=== PATIENT | female | born 1950 | race Caucasian/White ===

== ENCOUNTER 2024-03-22 14:02 | Oncology outpatient (recurring) (ONCR) | payer MEDICARE, SELFPAY ==
--- OUTSIDE RECORDS SUMMARY | 2024-03-22 14:06 | XMS_ITS | Continuity of Care Document ---
Author Name Unknown Organization [facility] Address [address] [place] [address]- Encounter [employer] Number [id number] Date(s): 12/09/23 - 12/09/23 [facility] [address] [place] [address]- Encounter Diagnosis Encounter for screening colonoscopy(Discharge Diagnosis) - 12/09/23 Discharge Disposition: .Discharge to Home (Routine) Attending Physician: Brandon Sharma MD Admitting Physician: Brandon Sharma MD Allergies, Adverse Reactions, Alerts Substance Reaction Severity Status codeine nauseau, hallucinations Unknown Acti ve Macrobid severe headache Unknown Active Medications aspirin 81 mg oral capsule 81 mg = 1 cap, By mouth, Q24H, Refill(s) 0 Start Date: 12/09/23 Status: Ordered metoprolol succinate By mouth, Daily, Refill(s) 0 Start Date: 12/09/23 Status: Ordered pravastatin 20 mg oral tablet 20 mg = 1 tab, By mouth, Daily, Refill(s) 0 Start Date: 12/09/23 Status: Ordered Procedures Procedure Date Related Diagnosis Body Site Status Colonoscopy - Endo 63277 1 12/09/23 Completed COLONOSCOPY FLX DX W/COLLJ S PEC WHEN PFRMD 12/09/23 Completed COLONOSCOPY FLX DX W/COLLJ S PEC WHEN PFRMD 12/09/23 Completed 1auto-populated from documented surgical case Vital Signs Most recent to oldest [Reference Range]: 1 2 Blood Pressure 137/82 (12/09/23 1:20 PM) Blood Pressure 133/82mmHg (12/09/23 1:05 PM) 138/83mmHg (12/09/23 12:50 PM) Height (inches) (Clinical) 64 in (12/09/23 9:36 AM) Weight (kg) (Clinical) 68.1 kg (12/09/23 9:36 AM) Social History Social History Type Response Sex Female Hospital Discharge Instructions Patient Education 12/09/2023 09:45:08 Moderate Conscious Sedation, Adult, Care After Moderate Conscious Sedation, Adult, Care After This sheet gives you information about how to care for yourself after your procedure. Your health care provider may also give you more specific instructions. If you have problems or questions, contact your health care provider. What can I expect after the procedure? After the procedure, it is common to have: ??? Sleepiness for several hours. ??? Impaired judgment for several hours. ??? Difficulty with balance. ??? Vomiting if you eat too soon. Follow these instructions at home: For the time period you were told by your health care provider: ??? Rest. ??? Do not participate in activities where you could fall or become injured. ??? Do not drive or use machinery. ??? Do not drink alcohol. ??? Do not take sleeping pills or medicines that cause drowsiness. ??? Do not make important decisions or sign legal documents. ??? Do not take care of children on your own. Eating and drinking ??? Follow the diet recommended by your health care provider. ??? Drink enough fluid to keep your urine pale yellow. ??? If you vomit: ??? Drink water, juice, or soup when you can drink without vomiting. ??? Make sure you have little or no nausea before eating solid foods. General instructions ??? Take xopk-lus-qvsulez and prescription medicines only as told by your health care provider. ??? Have a responsible adult stay with you for the time you are told. It is important to have someone help care for you until you are awake and alert. ??? Do not smoke. ??? Keep all follow-up visits as told by your health care provider. This is important. Contact a health care provider if: ??? You are still sleepy or having trouble with balance after 24 hours. ??? You feel light-headed. ??? You keep feeling nauseous or you keep vomiting. ??? You develop a rash. ??? You have a fever. ??? You have redness or swelling around the IV site. Get help right away if: ??? You have trouble breathing. ??? You have new-onset confusion at home. Summary ??? After the procedure, it is common to feel sleepy, have impaired judgment, or feel nauseous if you eat too soon. ??? Rest after you get home. Know the things you should not do after the procedure. ??? Follow the diet recommended by your health care provider and drink enough fluid to keep your urine pale yellow. ??? Get help right away if you have trouble breathing or new-onset confusion at home. This information is not intended to replace advice given to you by your health care provider. Make sure you discuss any questions you have with your health care provider. Document Revised: 11/23/2020 Document Reviewed: 06/21/2020 [employer] Patient Education ?? 2021 [employer]. 12/09/2023 09:45:08 Colonoscopy, Adult, Care After, Yrgs-gc-[id number] Colonoscopy, Adult, Care After After a colonoscopy, it is common to have: ??? A small amount of blood in your poop (stool) for 24 hours. ??? Some gas. ??? Mild cramping or bloating in your belly (abdomen). Follow these instructions at home: Your doctor may give you more instructions. If you have problems, contact your doctor. Eating and drinking ??? Drink enough fluid to keep your pee (urine) pale yellow. ??? Follow instructions from your doctor about what you cannot eat or drink. ??? Return to your normal diet as told by your doctor. Avoid heavy or fried foods that are hard to digest. Activity ??? Rest as told by your doctor. ??? Get up to take short walks every 1 to 2 hours. Ask for help if you feel weak or unsteady. ??? Return to your normal activities when your doctor says that it is safe. To help cramping and bloating: ??? Try walking around. ??? If told, put heat on your belly. Do this as told by your doctor. Use the heat source that your doctor recommends, such as a moist heat pack or a heating pad. ??? Place a towel between your skin and the heat source. ??? Leave the heat on for 20???30 minutes. ??? Take off the heat if your skin turns bright red. This is very important. If you cannot feel pain, heat, or cold, you have a greater risk of getting burned. General instructions ??? If you were given a sedative during your procedure, do not drive or use machines until your doctor says that it is safe. A sedative is a medicine that helps you relax. ??? For the first 24 hours after the procedure: ??? Do not sign important documents. ??? Do not drink alcohol. ??? Do your daily activities more slowly than normal. ??? Eat foods that are soft and easy to digest. ??? Take mylm-vlt-cbmrtmi and prescription medicines only as told by your doctor. ??? Keep all follow-up visits. Contact a doctor if: ??? You have blood in your poop 2???3 days after the procedure. Get help right away if: ??? You have more than a small amount of blood in your poop. ??? You see large clumps of tissue (blood clots) in your poop. ??? Your belly is swollen. ??? You feel like you may vomit (nauseous). ??? You vomit. ??? You have a fever. ??? You have belly pain that gets worse, and medicine does not help your pain. These symptoms may be an emergency. Get help right away. Call 911. ??? Do not wait to see if the symptoms will go away. ??? Do not drive yourself to the hospital. Summary ??? After a colonoscopy, it is common to have a small amount of blood in your poop. You may also have mild cramping and bloating in your belly. ??? If you were given a sedative during your procedure, do not drive or use machines until your doctor says that it is safe. A sedative is a medicine that helps you relax. ??? Get help right away if you have a lot of blood in your poop, feel like you may vomit, have a fever, or have more belly pain. This information is not intended to replace advice given to you by your health care provider. Make sure you discuss any questions you have with your health care provider. Document Revised: 03/19/2022 Document Reviewed: 03/19/2022 [employer] Patient Education ?? 2021 [employer]
--- OUTSIDE RECORDS SUMMARY | 2024-03-22 14:06 | XMS_ITS ---
Author Name Unknown Organization [facility] [place] Address [address] [place] [address] Care Team Providers Care Associate Data Scientist Name Role Phone Nannette Ronquillo MD Primary Care Provider Unavaila ble Nannette Ronquillo Unavailable [phone] Allergies Allergen (clinical drug ingredient) Drug/Non Drug Allergy documented on EMR Reaction Allergy Type Onset Date Status nitrofurantoin, macrocrystals / nitrofurantoin, monohydrate Macrobid Unknown Drug Allergy 09/08/2022 active codeine Codeine Unknown Drug Allergy 09/08/2022 active REASON FOR VISIT 6 mth f/u Medications Medication SIG (Take, Route, Frequency, Duration) Notes Start Date End Date Status Pravastatin Sodium 20 MG one tablet Oral once a day 07/14/2023 Active Vitamin D (Ergocalciferol) 54187 UNIT Oral 08/17/2023 Active Metoprolol Succinate ER 25 MG 1 tablet Orally Once a day Active Social History Tobacco Use: Social History Observation Description Date Details (start date - stop date) Never Smoker NA - NA Household Question Answer Notes Marital status: Number of adults in household: 2 Number of children in household: 0 AUDIT-C Plus 2 Question Answer Notes 1. How often did you have a drink containing alc ohol? 4+ times a week (4) 2. How many drinks containin g alcohol did you have on a typical day when you were drinking? 1 or 2 drinks (0) 3. How often did you have 5 or more drinks on on e occasion? Never (0) 4. How often have you used marijuana? Never (0) 5. How often have you used a n illegal drug or a prescription medication for non-medical reasons*? Never (0) Total Score 4 AUDIT-C (0-12 Points) Positive Screen Cannabis question (0-4 Points) Negative Screen Other drugs question (0-4 Points) Negative Shabnam GUTIERRES V2.1 Question Answer Notes 1. Drink more than a few sip s of beer, wine, or any drink containing alcohol? Say 0 if none 365 2. Use any marijuana (cannab is, weed, oil, wax, or hash by smoking, vaping, dabbing, or in edibles) or synthetic marijuana: (like K2 , Spice )? Say 0 if none 0 3. Use anything else to get high (like other illegal drugs, pills, prescription or rvlp-dvp-dvuscmp medications, and things that you sniff, mcbride, vape, or inject)? Say 0 if none 0 Have you ever ridden in a [place] R driven by someone (including yourself) who was high or had been using alcohol or drugs? No Do you ever use alcohol or d rugs to RELAX, feel better about yourself, or fit in? No Do you ever use alcohol or drugs while you are b y yourself, or ALONE? No Do you ever FORGET things you did while using al cohol or drugs? No Do your FAMILY or FRIENDS ev er tell you that you should cut down on your drinking or drug use? No Have you ever gotten into TROUBLE while you were using alcohol or drugs? No AUDIT (2018 Edition) Question Answer Notes How often do you have a drink containing alcohol ? 4 or more times a week How many drinks containing a lcohol do you have on a typical day when you are drinking? 1 or 2 How often do you have 5 or more drinks on one oc casion? Never How often during the last ye ar have you found that you were not able to stop drinking once you had started? Never How often during the last ye ar have you failed to do what was normally expected from you because of drinking? Never How often during the last ye ar have you needed a first drink in the morning to get yourself going after a heavy drinking session? Never How often during the last ye ar have you had feeling of guilt or remorse after drinking? Never How often during the last ye ar have you been unable to remember what happened the night before because you had been drinking? Never Have you or someone else bee n injured as a result of your drinking? No Has a relative, friend, doct or or another health worker been concerned about your drinking or suggested you cut down? No CAGE-AID Questionnaire (2018 Edition) Question Answer Notes Have you ever felt that you ought to cut down on your drinking or drug use? No Have people annoyed you by criticizing your drin reyna or drug use? No Have you ever felt bad or guilty about your drin reyna or drug use? No Have you ever had a drink or used drugs first thing in the morning to steady your nerves or to get rid of a hangover? No PRAPARE Question Answer Notes Date Completed/Updated: 01/26/2024 What is your current housing situation? I have h ousing Are you worried about losing your housing? No What is your current work situation? Oth erwise unemployed but not seeking work (ex. 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 Check all that apply I do not have problems meeting my needs Has lack of transportation k ept you from medical appointments, meetings, work or from getting things needed for daily living? No How often do you see or talk to people that you care about and feel close to? (For example: talking to friends on the phone, visiting friends or family, going to sikhism or club meetings) 3 to 5 times a week How stressed are you? Stress is when someone feels tense, nervous, anxious, or can't sleep at night because their mind is troubled A little bit In the past year have you sp ent more than 2 nights in a row in a skilled nursing, assisted, alf center, or juvenile correctional facility? No Do you feel physically and e motionally safe where you currently live? Yes In the past year, have you b een afraid of your partner or ex-partner? No Are you a refugee? No What country are you from? [place] Tobacco Control (Standard) Question Answer Notes Tobacco use: Nonsmoker Additional Findings: Tobacco non-user Current no nsmoker AUDIT-C (Standard) Question Answer Notes Did you have a drink contain ing alcohol in the past year? Yes How often did you have six o r more drinks on one occasion in the past year? Never (0 point) How many drinks did you have on a typical day when you were drinking in the past year? 1 or 2 drinks (0 point) How often did you have a dri nk containing alcohol in the past year? Daily or almost daily (4 points) Points 4 Interpretation Positive Vital Signs Temperature 98.4 degrees Fahrenheit 01/26/20 24 Blood pressure systolic 116 mm Hg 01/26/20 24 Blood pressure diastolic 68 mm Hg 024 Heart Rate 70 /min 01/26/2024 Respiratory Rate 17 /min 01/26/2024 Height 64 in 01/26/2024 Weight 153 lbs 01/26/2024 BMI 26.26 kg/m2 01/26/2024 Oximetry 97 % 01/26/2024 Height-cm 162.56 cm 01/26/2024 Weight-kg 69.4 kg 01/26/2024 Encounters Encounter Location Date Provider Diagnosis [facility] Marcel[facility] [address] [place] [id number] 01/26/2024 Nannette Ronquillo Mixed hyperlipidemia E78.2 ; Unspecified osteoarthritis, unspecified site M19.90 ; Vitamin D deficiency, unspecified E55.9 ; Edema, unspecified R60.9 and Metatarsalgia, left foot M77.42 Assessments Encounter Date Diagnosis (ICD Code) Assessment Notes Treat ment Notes Treatment Clinical Notes 01/26/2024 Mixed hyperlipidemia (ICD-10 - E78.2) 01/26/2024 Unspecified osteoarthritis, unspecified site (ICD-10 - M19.90) 01/26/2024 Vitamin D deficiency , unspecified (ICD-10 - E55.9) 01/26/2024 Edema, unspecified (ICD-10 - R60.9) 01/26/2024 Metatarsalgia, left foot (ICD-10 - M77.42) 01/26/2024 Other discussed cont with compression socks could add mild diuretic if worsens discussed metarsal pad discussed potential pod referral discussed acupuncture f/u with lab in 6 months, sooner prn Plan Of Treatment Treatment Notes Assessment Notes Other discussed cont with compression socks could add mild diuretic if worsens discussed metarsal pad discussed potential pod referral discussed acupuncture f/u with lab in 6 months, sooner prn Next Appt Details Follow Up: 6 Months, Reason: Provider Name:Nannette Ronquillo, 07/28/2024 08:30:00 AM, [address], [address], [place], [address], Progress Notes * RAMÍREZ CENTENODOB: [birth year] (73 yo F)Acc No.[id number]:01/26/2024 Patient:?RAMÍREZ CENTENO Provider:?Nannette Ronquillo MD :1950???Age:73 Y???Sex:Female D ate:01/26/2024 Address:[facility] [address], [place], [id number] Pcp:Nannette Ronquillo MD Check In:08:19 AM CSTCheck O ut:09:15 AM MANAGER SOCIAL WORK Subjective: * Chief Complaints: * ???6 mth f/u * HPI: ???Today's Visit:?Pt presents with husban at side. Well groomed and able to care for self. Able to walk with steady gait. A/Ox3. States here today for a six month check in. Concerns are toe on L foot has strange nerve sensation that is painful at times, BLE swell and ache throughout the day and are painful at night. Wairs compression socks daily. AOC on L side of nose that she stated she is seeing Hailey Gómez [facility] [employer] [employer] [facility] for. Was frozen 4 weeks ago but keeps coming back.? Iván Hinds Lpn Pt presents for 6 month f/u.? Overall doing well.? Has noted some LE edema bilaterally that improves with elevation.? Does wear compression stockings.? Additional has some pain b/t 1st and 2nd toes.? Stinging type nerve pain.? Comes and goes.? No other concerns today. * ROS:?General / Constitutional:?Patient denies?change in appetite, fever, weakness.?Allergy / Immunology:?Patient denies?hives, itching, rash.?Ophthalmologic:?Patient denies?blurry vision, discharge, red eye(s).?ENT:?Patient denies?difficulty in swallowing, hoarseness.?Endocrine:?Patient denies?cold intolerance, hair loss.?Respiratory:?Patient denies?chronic cough, shortness of breath, sputum production.?Breast:?Patient denies?bloody nipple discharge, breast pain, breast swelling.?Cardiovascular:?Patient denies?chest pain, chest pain with exertion, irregular heartbeat.?Gastrointestinal:?Patient denies?abdominal pain, diarrhea, rectal bleeding.?Hematology:?Patient denies?easy bleeding, easy bruising, recent transfusion.?Gynecology:?Patient denies?abnormal bleeding, hot flashes, pelvic pain.?Genitourinary:?Patient denies?abdominal pain / swelling, blood in the urine, frequent urination.?Musculoskeletal:?Patient denies?arthritis / arthralgia, joint stiffness, swollen joints.?Peripheral Vascular:?Patient denies?blanching of skin, cold extremities, decreased sensation in extremities.?Podiatric:?Patient complains of?nerve pain in toes on L foot, , foot swelling, ankle swelling.?Skin:?Patient denies?blistering of skin, changing moles, skin lesion(s).?Comments?aoc to L side of nose that had been frozen once but always comes back.?Neurologic:?Patient denies?dizziness, gait abnormality, headache.?Psychiatric:?Patient denies?delusions, depressed mood, difficulty sleeping.? * Medical History:? * Surgical History:? * Hospitalization/Major Diagno stic Procedure:? * Family History:?Father: dece ased.?Mother: .?2 daughter(s) . .? * Social History:?Tobacco Use:?Tobacco Control (Standard)?Tobacco use:?Nonsmoker ?Additional Findings: Tobacco non-user?Current nonsmoker ???Migrated Social History:?Migrated Social History: Smoking Status : non-smoker. ???Drug/Alcohol:?Drugs?Have you used drugs other than those for medical reasons in the past 12 months??No ?Caffeine?Intake:?1-2 cups per day ?Do you smoke marijuana?: Denies. ?Do you drink alcohol?: Daily. ?AUDIT-C Plus 2?1. How often did you have a drink containing alcohol??4+ times a week (4) ?2. How many drinks containing alcohol did you have on a typical day when you were drinking??1 or 2 drinks (0) ?3. How often did you have 5 or more drinks on one occasion??Never (0) ?4. How often have you used marijuana??Never (0) ?5. How often have you used an illegal drug or a prescription medication for non-medical reasons*??Never (0) ?Total Score?4 ?AUDIT-C (0-12 Points)?Positive Screen ?Cannabis question (0-4 Points)?Negative Screen ?Other drugs question (0-4 Points)?Negative Screen ?AUDIT (2018 Edition)?How often do you have a drink containing alcohol??4 or more times a week ?How many drinks containing alcohol do you have on a typical day when you are drinking??1 or 2 ?How often do you have 5 or more drinks on one occasion??Never ?How often during the last year have you found that you were not able to stop drinking once you had started??Never ?How often during the last year have you failed to do what was normally expected from you because of drinking??Never ?How often during the last year have you needed a first drink in the morning to get yourself going after a heavy drinking session??Never ?How often during the last year have you had feeling of guilt or remorse after drinking??Never ?How often during the last year have you been unable to remember what happened the night before because you had been drinking??Never ?Have you or someone else been injured as a result of your drinking??No ?Has a relative, friend, doctor or another health worker been concerned about your drinking or suggested you cut down??No ?CAGE-AID Questionnaire (2018 Edition)?Have you ever felt that you ought to cut down on your drinking or drug use??No ?Have people annoyed you by criticizing your drinking or drug use??No ?Have you ever felt bad or guilty about your drinking or drug use??No ?Have you ever had a drink or used drugs first thing in the morning to steady your nerves or to get rid of a hangover??No ?AUDIT-C (Standard)?Did you have a drink containing alcohol in the past year??Yes ?How often did you have six or more drinks on one occasion in the past year??Never (0 point) ?How many drinks did you have on a typical day when you were drinking in the past year??1 or 2 drinks (0 point) ?How often did you have a drink containing alcohol in the past year??Daily or almost daily (4 points) ?Points?4 ?Interpretation?Positive ???Household:?Household?Marital status:?Number of adults in household:?2 ?Number of children in household:?0 ???Miscellaneous:?Safety issues?Do you feel safe at home??Yes ?Are there any firearms in the house??Yes ?Education?Do you go to school??No ?Occupation: retired. ???Drug and Alcohol Risk Assessment:?LYDIAT V2.1?1. Drink more than a few sips of beer, wine, or any drink containing alcohol? Say 0 if none?365 ?2. Use any marijuana (cannabis, weed, oil, wax, or hash by smoking, vaping, dabbing, or in edibles) or synthetic marijuana: (like K2 , Spice )? Say 0 if none?0 ?3. Use anything else to get high (like other illegal drugs, pills, prescription or zgka-bgg-qrhgsmk medications, and things that you sniff, mcbride, vape, or inject)? Say 0 if none?0 ?Have you ever ridden in a CAR driven by someone (including yourself) who was high or had been using alcohol or drugs??No ?Do you ever use alcohol or drugs to RELAX, feel better about yourself, or fit in??No ?Do you ever use alcohol or drugs while you are by yourself, or ALONE??No ?Do you ever FORGET things you did while using alcohol or drugs??No ?Do your FAMILY or FRIENDS ever tell you that you should cut down on your drinking or drug use??No ?Have you ever gotten into TROUBLE while you were using alcohol or drugs??No ???Social Determinants:?PRAPARE?Date Completed/Updated:?01/26/2024 ?What is your current housing situation??I have housing ?Are you worried about losing your housing??No ?What is your current work situation??Otherwise unemployed but not seeking work (ex. 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 Check all that apply?I do not have problems meeting my needs ?Has lack of transportation kept you from medical appointments, meetings, work or from getting things needed for daily living??No ?How often do you see or talk to people that you care about and feel close to? (For example: talking to friends on the phone, visiting friends or family, going to sikhism or club meetings)?3 to 5 times a week ?How stressed are you? Stress is when someone feels tense, nervous, anxious, or can't sleep at night because their mind is troubled?A little bit ?In the past year have you spent more than 2 nights in a row in a skilled nursing, assisted, alf center, or juvenile correctional facility??No ?Do you feel physically and emotionally safe where you currently live??Yes ?In the past year, have you been afraid of your partner or ex- partner??No ?Are you a refugee??No ?What country are you from??[place] * Medications:?TakingMetoprolo l Succinate ER 25 MG Tablet Extended Release 24 Hour 1 tablet Orally Once a day Pravastatin Sodium 20 MG Tablet one tablet Oral once a day Vitamin D (Ergocalciferol) 86913 UNIT Capsule Oral Taking Metoprolol Succinate ER 25 MG Tablet Extended Release 24 Hour 1 tablet Orally Once a day Taking Pravastatin Sodium 20 MG Tablet one tablet Oral once a day Taking Vitamin D (Ergocalciferol) 75431 UNIT Capsule Oral DiscontinuedToprol XL 25 MG Tablet Extended Release 24 Hour Oral Vitamin D (Ergocalciferol) 1.25 MG (06278 UT) Capsule Oral Discontinued Toprol XL 25 MG Tablet Extended Release 24 Hour Oral Discontinued Vitamin D (Ergocalciferol) 1.25 MG (99778 UT) Capsule Oral * Allergies:?Macrobid: Allergy - Onset Date 09/08/2022odeine: Allergy - Onset Date 09/08/2022 Objective: * Vitals:?BP:116/68mm Hg, HR:7 0/min, RR:17/min, Temp:98.4F, Oxygen sat %:97%, Wt:153lbs, Wt-k.4 kg, Ht: 64 in, Ht-cm: 162.56 cm, BMI:26.26Index, Pain scale:01-10, Body Surface Area: 1.77, LMP:na. * Examination: ???General Examination: ???GEN: NAD, pleasant HEENT normal Cor RRR without m Lungs CTA bilat Abd: soft NT/ND Ext no C/C mild edema, + pain b/w 1st and second toes.? worse with pressure.? No deformity psych: A&O x 3. Assessment: * Assessment: 1.?Mixed hyperlipidemia - E7 8.2 (Primary)?2.?Unspecified osteoarthritis, unspecified site - M19.90?3.?Vitamin D deficiency, unspecified - E55.9?4.?Edema, unspecified - R60.9?5.?Metatarsalgia, left foot - M77.42? Plan: * Treatment: * Procedure Codes:? * Follow Up:?6 Months * Billing Information: * Visit Code:? 70406 Office Visit, Est Pt., Level 3. * Procedure Codes:? * Sign off status: Completed true * Provider:?Nannette Ronquillo MD Date:?2023 Generated for Christal bustos/Mariano/Sudarshan on:?03/22/2024 02:06 PM CDT
--- OUTSIDE RECORDS SUMMARY | 2024-03-22 14:06 | XMS_ITS | Continuity of Care Document ---
Author Name Unknown Organization [facility] Address [address] [place], [place] [address] [address] Care Team Providers Care Media Center Assistant Name Role Phone MONROE HORNE Primary Care Physician [phone] Encounter MOPB_LUANN [id number] Date(s): 01/07/24 - 01/07/24 [facility] [address] [place], [place] [address] [address] Discharge Disposition: Home or Self Care Attending Physician: MONROE HORNE NP Referring Physician: MONROE HORNE NP Results Radiology Reports * Exam Date Time Procedure Performing Provider Status 01/07/24 11:00 AM BD Bone Density DEXA Axial Skeleton Iseal Berry Dog Warden; Auth (Verified) Notes: (BD Bone Density DEXA Axial Skeleton) Reason For Exam: M81.08 REPORT EXAM: DEXA SCAN HISTORY: Bone density screening TECHNIQUE: Hologic COMPARISON: None FINDINGS: DEXA scan is performed on the lumbar spine. Quality of the study is good. BMD 1.166 grams per square centimeter. T-score 1.1. Z-score 3.5. DEXA scan is performed on the left femoral neck. Quality of the study is good. BMD 0.596 grams per square centimeter. T-score -2.3. Z-score -0.2. DEXA scan is performed on the left hip. Quality of the study is good. BMD 0.747 grams per square centimeter. T-score -1.6. Z-score 0.2. IMPRESSION: Location of lowest bone mineral density: Left femoral neck T-score: -2.3 T-score values considered osteopenia by WHO classification. Recommendation: Follow up DEXA scan in 1-2 years. FRAX WHO FRACTURE RISK ASSESSMENT TOOL: Not reported due to treatment for osteoporosis Final Signed by: GERARD FIGUEREDO MD Signed (Electronic Signature): 01/07/2024 12:13 pm CDT Social History Social History Type Response Sex Female Patient Care team information Care Team Personnel Name: MONROE HORNE GENERAL INTERN Position: Physician - Nurse Practi Anselmo Triplett All Member Role: Primary Care Physician Address: Address: [address] [place], [place] [id number]- Care Team Related Persons Name: GEMA DUMAS Address: Home
--- OUTSIDE RECORDS SUMMARY | 2024-03-22 14:07 | XMS_ITS ---
Author Name Unknown Organization [facility] Address [address] [place] [address] Care Team Providers Care Package Delivery Driver Name Role Phone Shima TAMEZ, Nannette Primary Care Provider Unavaila ble Nannette Ronquillo Unavailable [phone] Migration, Provider Unavailable Unavailable REASON FOR VISIT EMR-Nemesio Encounters Encounter Location Date Provider Diagnosis [facility] [address] [place] [address] 10/17/2023 Provider Migration Plan Of Treatment Next Appt Details Provider Name:Nannette Méndezy, 07/28/2024 08:30:00 AM, [address], [address], [place], [address], Progress Notes * RAMÍREZ CENTENODOB: [birth year] (73 yo F)Acc No.[id number]:10/17/2023 Patient:?RAMÍREZ CENTENO :1950???Age:73 Y???Sex:Female Address: [address], [place], [address] Subjective: * Chief Complaints: * ???EMR-Nemesio * Medical History:? * Surgical History:? * Hospitalization/Major Diagno stic Procedure:? * Medications:? Objective: * Vitals:? * Physical Examination:? Assessment: Plan: * Treatment: * Procedure Codes:? * * Date:?
--- OUTSIDE RECORDS SUMMARY | 2024-03-22 14:07 | XMS_ITS ---
Author Name Unknown Organization [facility] [place] Address [address] [facility] [address] [place] [address] Care Team Providers Care Conditioner Tender Name Role Phone Shima TAMEZ, Nannette Primary Care Provider Unavaila Nannette Loja Unavailable [phone] Migration, Provider Unavailable Unavailable Allergies Allergen (clinical drug ingredient) Drug/Non Drug Allergy documented on EMR Reaction Allergy Type Onset Date Status nitrofurantoin, macrocrystals / nitrofurantoin, monohydrate Macrobid Unknown Drug Allergy 09/08/2022 active codeine Codeine Unknown Drug Allergy 09/08/2022 active REASON FOR VISIT EMR-N[facility]io Medications Medication SIG (Take, Route, Frequency, Duration) Notes Start Date End Date Status Vitamin D (Ergocalciferol) 1.25 MG (65326 UT) Oral 08/17/2023 Active Vitamin D (Ergocalciferol) 06272 UNIT Oral 08/17/2023 Active Toprol XL 25 MG Oral 07/14/2023 Act bubba Pravastatin Sodium 20 MG Oral 07/14/2023 Active Encounters Encounter Location Date Provider Diagnosis [facility] [place] [address] [facility] [address] [place] [address] 10/18/2023 Provider Migration Plan Of Treatment Next Appt Details Provider Name:Nannette Ronquillo, 07/28/2024 08:30:00 AM, [address], [address], [place], [address], Progress Notes * RAMÍREZ CENTENODOB: 8 (73 yo F)Acc No.[id number]:10/18/2023 Patient:?JACOBO, RAMÍREZ :1950???Age:73 Y???Sex:Female Address:[address] [address], [place], [address] Subjective: * Chief Complaints: * ???EM[facility] * Medical History:? * Surgical History:? * Hospitalization/Major Diagno stic Procedure:? * Social History:?Migrated Social History:?Migrated Social History: Smoking Status :. * Medications:?TakingPravastat in Sodium 20 MG Tablet Oral Pravastatin Sodium 20 MG Tablet Oral Toprol XL 25 MG Tablet Extended Release 24 Hour Oral Toprol XL 25 MG Tablet Extended Release 24 Hour Oral Toprol XL 25 MG Tablet Extended Release 24 Hour Oral Vitamin D (Ergocalciferol) 1.25 MG (53694 UT) Capsule Oral Vitamin D (Ergocalciferol) 05343 UNIT Capsule Oral Taking Pravastatin Sodium 20 MG Tablet Oral Taking Pravastatin Sodium 20 MG Tablet Oral Taking Toprol XL 25 MG Tablet Extended Release 24 Hour Oral Taking Toprol XL 25 MG Tablet Extended Release 24 Hour Oral Taking Toprol XL 25 MG Tablet Extended Release 24 Hour Oral Taking Vitamin D (Ergocalciferol) 1.25 MG (42060 UT) Capsule Oral Taking Vitamin D (Ergocalciferol) 25775 UNIT Capsule Oral * Allergies:?Macrobid: Allergy - Onset Date 09/08/2022odeine: Allergy - Onset Date 09/08/2022 Objective: * Vitals:? * Physical Examination:? Assessment: Plan: * Treatment: * Procedure Codes:? * * Date:?
--- OUTSIDE RECORDS SUMMARY | 2024-03-22 14:07 | XMS_ITS | Patient Health Record ---
Author Name Unknown Organization [facility] Address [address] [facility] [address] [place] [address] Care Team Providers Care Evening Anchor Name Role Phone Nannette Ronquillo MD Primary Care Provider Unavaila Nannette Loja Unavailable [phone] Micaela Gómez Unavailable [phone] Migration, Provider Unavailable Unavailable Allergies Allergen (clinical drug ingredient) Drug/Non Drug Allergy documented on EMR Reaction Allergy Type Onset Date Status nitrofurantoin, macrocrystals / nitrofurantoin, monohydrate Macrobid Unknown Drug Allergy 09/08/2022 active codeine Codeine Unknown Drug Allergy 09/08/2022 active Results Component Value Reference Range Notes CALCIUM, SERUM/PLASMA Reviewed date:04/11/2023 12:00:00 AM Interpretation: Performing Lab: Notes/Report: Calcium 9.4 mg/dL 8.3 mg/dL - 10.5 mg/dL Reason For Referral No Information Medications Medication SIG (Take, Route, Frequency, Duration) Notes Start Date End Date Status Pravastatin Sodium 20 MG one tablet Oral once a day 07/14/2023 Active Vitamin D (Ergocalciferol) 24362 UNIT Oral 08/17/2023 Active Metoprolol Succinate ER [...] Screen Other drugs question (0-4 Points) Negative Scree n CRAFFT V2.1 Question Answer Notes 1. Drink more [...] (like other illegal drugs, pills, prescription or oqnp-aai-wyafoka medications, and things that you sniff, mcbride, [...] work (ex. 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 Stress is when someone feels tense, nervous, anxious, or can't sleep at night because their mind is troubled A little bit In the past year have you sp ent more than 2 nights in a row in a fpc, intermediate, senior care center, or juvenile correctional facility? No Do [...] daily (4 points) Points 4 Interpretation Positive Problems Problem Type SNOMED Code ICD Code Onset Dates Problem Status W/U Status Risk Notes Problem Vitamin D deficiency (95811597) Vitamin D deficiency, unspecified (E55.9) 07/14/20 Active confirmed Problem Mixed hyperlipidemia (088016560) Mixed hyperlipidemia (E78.2) 07/14/20 Active confirmed Problem Osteoarthritis (119806109) Unspecified osteoarthritis, unspecified site (M19.90) 07/14/20 Active confirmed Problem Age-related osteoporosis (341069412) Age-related osteoporosis without current pathological fracture (M81.0) 09/08/19 Active confirmed Vital Signs Heart Rate 70 /min 01/26/2024 Temperature 98.4 degrees Fahrenheit 01/26/2024 Respiratory Rate 17 /min 01/26/2024 Height-cm 162.56 cm 01/26/2024 Oximetry 97 % 01/26/2024 Blood pressure diastolic 68 mm Hg 01/26/2024 Weight-kg 69.4 kg 01/26/2024 Height 64 in 01/26/2024 Blood pressure systolic 116 mm Hg 01/26/2024 Weight 153 lbs 01/26/2024 BMI 26.26 kg/m2 01/26/2024 Encounters Encounter Location Date Provider Diagnosis [facility] [address] [place], [place] [address] 04/03/2023 Provider Migration [facility] [place] [address] [place], [place] [address] 04/10/2023 Provider Migration [facility] [address] [place], [place] [address] 06/01/2023 Nannette Ronquillo [facility] [address] [place] [address] 07/14/2023 Nannette Ronquillo [facility] [address] [place] [address] 01/26/2024 Nannette Ronquillo Mixed hyperlipidemia E78.2 ; Unspecified osteoarthritis, unspecified site M19.90 ; Vitamin D deficiency, unspecified E55.9 ; Edema, unspecified R60.9 and Metatarsalgia, left foot M77.42 [facility] [place] [address] [facility] [address] [place] [address] 10/17/2023 Provider Migration [facility] [place] [address] [facility] [address] [place] [address] 10/18/2023 Provider Migration Assessments Encounter Date Diagnosis (ICD Code) Assessment [...] 6 months, sooner prn Plan Of Treatment Next Appt Details Provider Name:Nannette Ronquillo, 07/28/2024 08:30:00 AM, [address], [address], [place], [address], Insurance Providers Payer Name Payer Address Payer Phone Subscriber Number Group Number Insured Name Patient Relationship to Insured Coverage Start Date Coverage End Date [place] [employer] [address], [place] [id number] JACOBO RAMÍREZ Self - patient is the insured 3 [facility] [address] [place] [address] [id number] PLAN N JACOBORAMÍREZ LORENZO Self - patient is the insured 3 3 Medical (General) History Medical History History ICD Code Vitamin D deficiency unspecified osteoarthritis mixed hyperlipidemia
[2024-03-22 15:15] VITALS: BP 128/80; PULSE 74; RESP 18; TEMP 36.8; O2SAT 99
[2024-03-22] MEDS: romosozumab-aqqg 210 mg/2.34 mL syr SUBCUT (15:50)
== END 2024-04-09 23:55 | disposition home or self-care (01) ==
PROVIDERS: Visit Provider Nurse Practitioner Family
DX: M81.0 Age-related osteoporosis without current pathological fracture (principal)
CPT/HCPCS: J3111

== ENCOUNTER 2024-04-19 13:29 | Oncology outpatient (recurring) (ONCR) | payer MEDICARE, SELFPAY ==
[2024-04-19] MEDS: romosozumab-aqqg 210 mg/2.34 mL syr SUBCUT (13:54)
[2024-04-19 14:00] VITALS: BP 150/82; PULSE 79; RESP 16; TEMP 36.6; O2SAT 97
== END 2024-05-09 23:59 | disposition home or self-care (01) ==
PROVIDERS: PCP Nurse Practitioner Family; Visit Provider Nurse Practitioner Family
DX: M81.0 Age-related osteoporosis without current pathological fracture (principal); Z79.899 Other long term (current) drug therapy
CPT/HCPCS: J3111

== ENCOUNTER 2024-05-23 13:22 | Oncology outpatient (recurring) (ONCR) | payer MEDICARE, SELFPAY ==
[2024-05-23] MEDS: romosozumab-aqqg 210 mg/2.34 mL syr SUBCUT (14:20)
[2024-05-23 14:30] VITALS: BP 146/83; PULSE 72; RESP 17; TEMP 36.6; O2SAT 98
== END 2024-06-09 23:59 | disposition home or self-care (01) ==
PROVIDERS: PCP Nurse Practitioner Family; Visit Provider Nurse Practitioner Family
DX: M81.0 Age-related osteoporosis without current pathological fracture (principal); Z79.899 Other long term (current) drug therapy
CPT/HCPCS: J3111

== ENCOUNTER 2024-06-27 13:52 | Oncology outpatient (recurring) (ONCR) | payer MEDICARE, SELFPAY ==
[2024-06-27 14:31] VITALS: BP 135/94; PULSE 79; RESP 18; TEMP 36.3; O2SAT 97
[2024-06-27] MEDS: romosozumab-aqqg 210 mg/2.34 mL syr SUBCUT (14:33)
== END 2024-07-09 23:59 | disposition home or self-care (01) ==
PROVIDERS: PCP Nurse Practitioner Family; Visit Provider Nurse Practitioner Family
DX: M81.0 Age-related osteoporosis without current pathological fracture (principal); Z79.899 Other long term (current) drug therapy
CPT/HCPCS: J3111

== ENCOUNTER 2024-07-25 13:38 | Oncology outpatient (recurring) (ONCR) | payer MEDICARE, SELFPAY ==
[2024-07-25] MEDS: romosozumab-aqqg 210 mg/2.34 mL syr SUBCUT (14:38)
== END 2024-08-09 23:59 | disposition home or self-care (01) ==
LOC: ONCMED 13:39
PROVIDERS: PCP Nurse Practitioner Family; Visit Provider Nurse Practitioner Family
DX: M81.0 Age-related osteoporosis without current pathological fracture (principal); Z79.899 Other long term (current) drug therapy
CPT/HCPCS: 96372; J3111

== ENCOUNTER 2025-01-17 10:17 | Oncology outpatient (recurring) (ONCR) | payer MEDICARE, SELFPAY ==
[2025-01-17 10:26] VITALS: BP 132/89; PULSE 64; RESP 16; TEMP 36.4; O2SAT 98
[2025-01-17] MEDS: denosumab 60 mg SDV SUBCUT (10:42)
== END 2025-02-06 23:59 | disposition home or self-care (01) ==
PROVIDERS: PCP Nurse Practitioner Family; Visit Provider Nurse Practitioner Family
DX: M81.0 Age-related osteoporosis without current pathological fracture (principal); Z79.899 Other long term (current) drug therapy
CPT/HCPCS: 96372; J0897

== ENCOUNTER 2025-07-18 10:15 | Oncology outpatient (recurring) (ONCR) | payer MEDICARE, SELFPAY ==
[2025-07-18] MEDS: denosumab 60 mg SDV (Infusion Clinic Only) SUBCUT (10:37)
== END 2025-08-09 23:59 | disposition home or self-care (01) ==
LOC: ONCMED 10:16
PROVIDERS: PCP Nurse Practitioner Family; Visit Provider Nurse Practitioner Family
DX: M81.0 Age-related osteoporosis without current pathological fracture (principal); Z79.899 Other long term (current) drug therapy
CPT/HCPCS: 96372; J0897